=== PATIENT | female | born 2000 | race Asian ===

== ENCOUNTER 2022-07-11 07:21 | Emergency (ER) | payer OTHER ==
[~2022-07-11] VITALS: Ht 160 cm; Wt 55.0 kg
[2022-07-11 08:19] VITALS: BP 133/76
[2022-07-11] MEDS ORDERED: guaiFENesin-DM 100/10mg/5ml SYR PO ONE (08:30)
[2022-07-11] MEDS ORDERED: AMOX500C2 PO (09:21)
[2022-07-11] MEDS ORDERED: DEXT1SYP9 PO (09:32)
[2022-07-11] MEDS ORDERED: BENZ1LOZ3 MT (09:32)
== END 2022-07-11 09:56 | disposition home or self-care (01) ==
LOC: ER 07:21
DX: J03.80 Acute tonsillitis due to other specified organisms (principal); B96.89 Other specified bacterial agents as the cause of diseases classified elsewhere; Z20.822 Contact with and (suspected) exposure to COVID-19; Z77.22 Contact with and (suspected) exposure to environmental tobacco smoke (acute) (chronic)
CPT/HCPCS: 36415; 87070; 87880